=== PATIENT | female | born 1995 | race Caucasian/White ===

== ENCOUNTER 2017-03-06 17:25 | Emergency (ER) | payer MEDICAID, OTHER ==
[2017-03-06 17:26] VITALS: BMI 25.7
[2017-03-06 17:39] VITALS: BP 106/71; PULSE 83; RESP 15; TEMP 99.1; O2SAT 99
--- NOTE | 2017-03-06 18:25 | ED PDOC ---
Arrival/HPI - General Chief Complaint: ENT Problem Time Seen by Provider: 03/06/17 17:45 Historian: Patient - History of Present Illness Narrative History of Present Illness (Text): 03/06/17 18:23 Patient reports foreign body sensation and pain to the right side of her throat since last night after eating garlic. States that she has been able to tolerate fluids and solid food since however she continues to have foreign body sensation and pain in her throat. She also reports mild epigastric discomfort described as a bloating feeling which she assumes it is due to indigestion, however did not take any medication for her symptoms, which also started last night. She denies any choking sensation, difficulty breathing, dysphagia, chest pain, fever, cough, nausea, vomiting. PMD none Past Medical History - Provider Review Nursing Documentation Reviewed: Yes - Cardiac Hx Cardiac Disorders: No - Pulmonary Hx Respiratory Disorders: No - Neurological Hx Neurological Disorder: No - HEENT Hx HEENT Disorder: No - Renal Hx Renal Disorder: No - Endocrine/Metabolic Hx Endocrine Disorders: No - Hematological/Oncological Hx Blood Disorders: No - Integumentary Hx Dermatological Disorder: No - Musculoskeletal/Rheumatological Hx Musculoskeletal Disorders: No - Gastrointestinal Hx Gastrointestinal Disorders: No - Genitourinary/Gynecological Hx Genitourinary Disorders: No - Psychiatric Hx Psychophysiologic Disorder: Yes Hx Anxiety: Yes Hx Substance Use: No - Surgical History Hx Tonsillectomy: Yes Family/Social History - Physician Review Nursing Documentation Reviewed: Yes Family/Social History: No Known Family HX Smoking Status: Current Some Days Smoker Hx Alcohol Use: No Hx Substance Use: No Allergies/Home Meds Allergies/Adverse Reactions: Allergies No Known Allergies Allergy (Verified 03/06/17 17:39) Home Medications: Home Meds Medication Instructions Recorded Confirmed No Known Home Med 03/06/17 03/06/17 Review of Systems - Review of Systems Constitutional: Normal. absent: Fatigue, Weight Change, Fevers ENT: Normal, Sore Throat. absent: Rhinorrhea, Sinus Congestion Respiratory: Normal. absent: SOB, Cough, Sputum Cardiovascular: Normal. absent: Chest Pain, Palpitations, Edema Gastrointestinal: Normal, Abdominal Pain. absent: Vomiting, Appetite Changes Skin: Normal. absent: Rash, Pruritis, Skin Lesions Physical Exam - Physical Exam Narrative Physical Exam (Text): 03/06/17 18:26 GENERAL APPEARANCE: Patient is awake, alert, oriented x 3, in no acute distress. Patient speaking in full sentences, no drooling. SKIN: Warm, dry; (-) cyanosis. EYES: (-) conjunctival pallor, (-) scleral icterus. ENMT: Mucous membranes moist. Airway patent. Pharynx : normal, (-) erythema or exudate, (-) edema, uvula is midline, (-) FB seen. NECK: Supple, (-) tenderness, (-) stiffness, (-) lymphadenopathy. CHEST AND RESPIRATORY: (-) rales, (-) rhonchi, (-) wheezes; breath sounds equal bilaterally. HEART AND CARDIOVASCULAR: (-) irregularity; (-) murmur, (-) gallop. ABDOMEN AND GI: (-) distention. Bowel sounds active; (-) tenderness, (-) guarding, (-) rebound, (-) palpable masses, (-) CVA tenderness. EXTREMITIES: (-) deformity, (-) edema, (+) distal pulses. NEURO AND PSYCH: Mental status as above; (-) focal findings. Vital Signs Temp Pulse Resp BP Pulse Ox 03/06/17 17:35 99.1 F 83 15 106/71 99 Medical Decision Making ED Course and Treatment: 03/06/17 18:27 21 yo F reports foreign body sensation and pain to the right side of her throat since last night after eating garlic. PE is otherwise normal. Based on history and exam, plan will be for outpatient follow-up with PMD and ENT referral provided. Patient reassured that she unlikely does not have a foreign body in her throat however, was advised that if symptoms continue to persist that she should seek evaluation by an ENT doctor, a referral was provided to the patient and encouraged to follow up if symptoms continue. Otherwise instructed to return to the emergency room at any time for any new or worsening symptoms. Patient states she fully agrees with and understands discharge instructions. States that she agrees with the plan and disposition. Verbalized and repeated discharge instructions and plan. I have given the patient opportunity to ask any additional questions. - PA / [employer] AND [employer] / Resident Statement / has reviewed & agrees with the documentation as recorded. Disposition/Present on Arrival - Present on Arrival Any Indicators Present on Arrival: No History of DVT/PE: No History of Uncontrolled Diabetes: No Urinary Catheter: No History of Decub. Ulcer: No History Surgical Site Infection Following: None - Disposition Have Diagnosis and Disposition been Completed?: Yes Diagnosis: Odynophagia Disposition: HOME/ ROUTINE Disposition Time: 18:15 Patient Plan: Discharge Condition: STABLE Discharge Instructions (ExitCare): Esophageal Foreign Body (ED) Print Language: IRISH Additional Instructions: Thank you for letting us take care of you today. You were treated for odynophagia. The emergency medical care you received today was directed at your acute symptoms. It may take several days for your symptoms to resolve. Return to the Emergency Department if your symptoms worsen, do not improve, or if you have any other problems. Please contact pmd and ENT referral provided in 2 days for re-evaluation and follow up. Bring any paperwork you were given at discharge with you along with any medications you are taking to your follow up visit. Our treatment cannot replace ongoing medical care by a primary care provider (PCP) outside of the emergency department. Thank you for allowing the [facility] team to be part of your care today. Referrals: Malick Hook, DO [Staff Provider] - Follow up with primary Forms: [facility] (Urdu)
== END 2017-03-06 18:30 | disposition home or self-care (01) ==
LOC: ED 17:25
DX: R13.10 Dysphagia, unspecified (principal)

== ENCOUNTER 2018-04-20 10:49 | Emergency (ER) | payer MEDICAID, OTHER ==
[2018-04-20 14:51] VITALS: BMI 24.0
[2018-04-20 15:11] LABS: URINE BILIRUBIN NEGATIVE (NEGATIVE); URINE BLOOD NEGATIVE (NEGATIVE); URINE GLUCOSE (UA) NEGATIVE (NEGATIVE); URINE LEUKOCYTE ESTERASE NEGATIVE Leu/uL (NEGATIVE); URINE PROTEIN NEGATIVE mg/dL (<30 mg/dL); URINE UROBILINOGEN 0.2 E.U./dL (<1 E.U./dL)
[2018-04-20 15:14] LABS: URINE APPEARANCE CLEAR (CLEAR)
[2018-04-20 15:15] LABS: HCG,QUALITATIVE URINE NEGATIVE (NEGATIVE); URINE COLOR LIGHT YELLOW (YELLOW)
--- NOTE | 2018-04-20 15:28 | US ---
Date of service: 04/20/2018 HISTORY: R sided pelvic pain, r/o cyst vs torsion COMPARISON: None available. TECHNIQUE: Transabdominal pelvic ultrasound FINDINGS: UTERUS: Measures 8.1 x 3.8 x 4.4 cm. Anteverted. ENDOMETRIUM: Measures 1 cm in diameter. CERVIX: No cervical abnormality identified. RIGHT OVARY: Measures 4.8 x 3.8 x 4.9 cm. Blood flow is demonstrated. 3.5 x 2.9 x 2.9 cm cyst. LEFT OVARY: Measures 3.4 x 2.4 x 3.1 cm. Blood flow is demonstrated. FREE FLUID: No significant free fluid noted. OTHER FINDINGS: None. IMPRESSION: 3.5 cm right ovarian cyst. Suggest 6 week ultrasound to assess for complete resolution.
[2018-04-20 15:38] LABS: ALB/GLOB RATIO 1.5 (1.1-1.8); ALBUMIN 4.6 g/dL (3.0-4.8); BLOOD UREA NITROGEN 13 mg/dL (7-21); CALCIUM 9.5 mg/dL (8.4-10.5); GFR NON-AFRICAN AMERICAN > 60
[2018-04-20 15:39] LABS: ALT/SGPT 20 U/L (7-56); AST/SGOT 20 U/L (14-36); LIPASE 60 U/L (23-300)
[2018-04-20 15:43] LABS: BASO # 0.01 K/mm3 (0.0-2.0); BASO % 0.3 % (0.0-3.0); EOS % 0.6 % (1.5-5.0); HEMOGLOBIN 15.9 g/dL (12.0-16.0); LYMPH # 1.3 (1.2-3.4); LYMPH % 36.9 % (22.0-35.0); MEAN CELL VOLUME 73.8 fl (80.0-105.0); MEAN CORPUSCULAR HEMOGLOBIN 23.4 pg (25.0-35.0); MEAN CORPUSCULAR HGB CONC 31.7 g/dl (31.0-37.0); MONO # 0.1 (0.1-0.6); MONO % 3.2 % (1.0-6.0); PLATELET COUNT 135 10^3/uL (120.0-450.0); RED CELL DISTRIBUTION WIDTH 16.6 % (11.5-14.5); WHITE BLOOD COUNT 3.4 10^3/ul (4.5-11.0)
[2018-04-20 16:03] VITALS: BP 104/66; PULSE 71; RESP 18; TEMP 98; O2SAT 100
== END 2018-04-20 16:03 | disposition home or self-care (01) ==
LOC: ED 10:49
DX: N83.201 Unspecified ovarian cyst, right side (principal)